=== PATIENT | female | born 2005 | race Two or more races ===

== ENCOUNTER 2024-09-30 17:34 | Emergency (ER) | payer BC, SELFPAY ==
[2024-09-30 17:55] VITALS: BP 130/83; PULSE 75; RESP 16; TEMP 37.6; O2SAT 97; BMI 21.3
--- NOTE | 2024-09-30 18:22 | PD.EDSKIN ---
ED Skin Abcess FB-RME/HPI General Chief complaint: Skin/Abscess/Foreign Body Stated complaint: Hives this morning Time Seen by Provider: 09/30/24 17:40 Arrival date/time: 09/30/24 17:34 RME / HPI RME / HPI narrative: 19-year-old female patient came in for evaluation regarding rashes. Onset of symptoms earlier today as rashes with hives, scattered all over with itchiness, severity moderate. Patient denies any source of allergen. Patient is worried because she noticed black rat poop in her bed. Denies any other complaints. Denies any similar episode in the past Related Data Previous Rx's ?Medication ?Instructions ?Recorded diphenhydramine HCl 25 mg capsule 25 mg PO TID PRN allergic reaction 09/30/24 (Benadryl) #30 caps prednisone 50 mg tablet 50 mg PO QDAY #5 tabs 09/30/24 Allergies Allergy/AdvReac Type Severity Reaction Status Date / Time No Known Allergies Allergy Unknown Uncoded 09/30/24 17:37 Review of Systems Review of Systems Narrative Review of Systems: Review of system reviewed and within normal limits except mentioned in HPI ED Exam Narrative Physical exam: VITAL SIGNS: Reviewed. GENERAL APPEARANCE: Alert and interactive, follows commands, no acute distress, HEAD AND FACE: Non-traumatic. ENT: PERRL, pink conjunctivitis, eyelid no trauma, Mucous membrane moist. NECK: Supple, nontender, no nuchal rigidity. CHEST: No tenderness, no crepitus, no paradoxical movement, no retractions. LUNGS: Clear, well ventilated, symmetric, no rales, no wheezing, no ronchi, no stridor, good breath sounds bilaterally. HEART: Regular rate, regular rhythm, no murmur, no gallops. ABDOMEN: Soft, positive bowel sounds, nondistended, no guarding, nontender, no rebound, no masses, RECTAL: Deferred. GENITAL: Deferred. NEUROLOGICAL: Gross motor function intact sensory function intact, Appropriate for age. MUSCULOSKELETAL: low back nontender, full range of motion. EXTREMITIES: Nontender, full range of motion. SKIN: Color pink, dry, erythematous rashes/hives scattered all over, no lacerations, no abrasions, no contusions. LYMPHATICS: Deferred. Course Quality Measures none Orders Category Date Time Status US pelvic complete Stat Exams 09/30/24 18:19 Stop Req Acetaminophen Tab [Tylenol ES Tab] Med 09/30/24 18:19 Discontinued 1,000 mg PO X1 ONE DiphenhydrAMINE [Benadryl] Med 09/30/24 18:21 Discontinued 50 mg PO X1 ONE Famotidine [Pepcid] Med 09/30/24 18:21 Discontinued 40 mg PO X1 ONE predniSONE Med 09/30/24 18:21 Discontinued 60 mg PO X1 ONE Vital Signs Vital signs: Vital Signs Temperature 99.7 F 09/30/24 17:55 Pulse Rate 75 09/30/24 17:55 Respiratory Rate 16 09/30/24 17:55 Blood Pressure 130/83 09/30/24 17:55 Pulse Oximetry (%) 97 09/30/24 17:55 Oxygen Delivery Method Room Air 09/30/24 17:55 Skin / Abscess / Foreign Body MDM Narrative MDM Narrative:: 19-year-old female patient came in for evaluation regarding rashes. Onset of symptoms earlier today as rashes with hives, scattered all over with itchiness, severity moderate. Patient denies any source of allergen. Patient is worried because she noticed black rat poop in her bed. Denies any other complaints. Denies any similar episode in the past Patient was given prednisone, Pepcid and Benadryl with significant progress symptoms. Imaging or workup is not needed at this time. Patient stable for discharge home. Patient data External records reviewed:: None Clinical information provided by:: patient and family Social determinants that could affect healthcare access:: none Patient has the following chronic illnesses:: None How is presenting disease/condition affected by chronic disease/condition?: no chronic disease Evaluation data The following diagnostics were reviewed and interpreted by me:: other (specify) (None) Lab and/or radiology exams considered but not ordered:: None Interpretation Summary: None Medications / Prescriptions Medications or Prescriptions considered but not ordered:: None Medication administrations:: Medication Administration History Discontinued Medications Acetaminophen (Acetaminophen 500 Mg Tablet) 1,000 mg PO X1 ONE Stop: 09/30/24 18:20 Last Admin: 09/30/24 18:34 Dose: Not Given Documented By: BEATRIZ Non-Admin Reason: Discontinued Diphenhydramine HCl (Diphenhydramine 25 Mg Capsule) 50 mg PO X1 ONE Stop: 09/30/24 18:22 Last Admin: 09/30/24 18:33 Dose: 50 mg Documented By: VG Famotidine (Famotidine 20 Mg Tablet) 40 mg PO X1 ONE Stop: 09/30/24 18:22 Last Admin: 09/30/24 18:33 Dose: 40 mg Documented By: VG Prednisone (Prednisone 20 Mg Tablet) 60 mg PO X1 ONE Stop: 09/30/24 18:22 Last Admin: 09/30/24 18:33 Dose: 60 mg Documented By: VG Prednisone, Pepcid and Benadryl Consultations Consultation(s) initiated? (list below): No Diagnosis Skin/Abscess Differential Diagnosis: viral exanthem, urticaria and other (Hives) Most likely diagnosis given after review of the tests above:: Hives Admission Indicated Admission indicated?: not indicated Admission Request Was there a request for admission?: No Disposition Plan Disposition Plan: Discharge Discharge Attestation Discharge Attestation: The patient and all family members were given an opportunity to ask questions and understood the discharge instructions. Discharge instructions specifically effects, indications for sooner follow up or return to the emergency department, and the expected course of current diagnosis. Patient condition: Stable Discharge Plan Plan Patient Disposition: HOME (Self Care) Discharge Disposition comment: Stable Prescriptions/Referrals Prescriptions/Med Rec: New diphenhydramine HCl [Benadryl] 25 mg capsule 25 mg PO TID PRN (Reason: allergic reaction) Qty: 30 0RF prednisone 50 mg tablet 50 mg PO QDAY Qty: 5 0RF Problem List Clinical Impression: Hives Patient/Caregiver Discharge Instructions Discharge Activity: activity as tolerated Education Materials: ED Hives (Adult) Additional Instructions: Thank you for the opportunity for serving you today. You are stable for discharged . You are advised to: Follow-up with your PCP in 1 to 2 days Return to ED for worsening of symptoms Increase oral fluids Take medication as prescribed Print Language: Kinyarwanda Stand Alone Forms: Belinda Award Info., Patient Portal Info Letter GELY/KULDIP Supervising Physician GELY/KULDIP Supervising Physician: MD Alcira
[2024-09-30] MEDS: FAMOTIDINE 20 MG TABLET 40 MG PO (18:33)
--- NOTE | 2024-09-30 19:23 | PC.NURSE ---
N/A for DC papers
== END 2024-09-30 19:35 | disposition home or self-care (01) ==
PROVIDERS: Emergency Provider Emergency Medicine
DX: L50.9 Urticaria, unspecified (principal)
CPT/HCPCS: 80053; 81001; 81025; 83690; 85025; 99283; J7512; A9270